=== PATIENT | male | born 1960 | race Hispanic/Latino ===

== ENCOUNTER 2022-03-26 12:43 | Emergency (ER) | payer OTHER ==
[~2022-03-26] VITALS: Ht 170.2 cm; Wt 75.7 kg
[2022-03-26] MEDS ORDERED: IOHEXOL 350 MG/ML 100ML INFUS..BTL IV ONE (12:53)
[2022-03-26] MEDS ORDERED: NAPR-1196 PO (14:13)
[2022-03-26 15:04] VITALS: BP 116/68
== END 2022-03-26 15:05 | disposition home or self-care (01) ==
LOC: EDH 12:43
DX: M25.551 Pain in right hip (principal); R10.31 Right lower quadrant pain; W18.09XA Striking against other object with subsequent fall, initial encounter; Y93.89 Activity, other specified; Y92.89 Other specified places as the place of occurrence of the external cause; Y99.0 Civilian activity done for income or pay
CPT/HCPCS: 71260; 73620; 74177; 93005; 99285; Q9967